=== PATIENT | female | born 1995 | race Caucasian/White ===

== ENCOUNTER 2017-02-17 07:14 | Emergency (ER) | payer OTHER ==
[2017-02-17 07:19] VITALS: TEMP 97.5
[2017-02-17] MEDS ORDERED: FAMOTIDINE 20 MG/NACL 50 ML IV ONE (07:54)
[2017-02-17] MEDS ORDERED: KETAMINE 100 MG/10 ML SYR IVP ONE (07:55)
[2017-02-17 07:59] LABS: % IMMATURE GRANULYOCYTES 0.4 % (0.0-1.1); ABSOLUTE IMMATURE GRANULOCYTES 0.06 10^3/uL (0.00-0.10); ADD DIFF? NO; ADD MORPH? NO; ADD SCAN? NO; ATYPICAL LYMPHOCYTE FLAG 0 (0-99); FRAGMENT RBC FLAG 0 (0-99); HEMATOCRIT 41.3 % (38.0-47.0); HEMOGLOBIN 14.6 g/dL (12.6-16.3); LEFT SHIFT FLG 0 (0-99); LIPEMIA HEMOLYSIS FLAG 90 (0-99); MEAN CELL HEMOGLOBIN 30.2 pg (27.9-34.1); MEAN CELL HEMOGLOBIN CONCENTR. 35.4 g/dL (32.4-36.7); MEAN CELL VOLUME 85.5 fL (81.5-99.8); MEAN PLATELET VOLUME 8.9 fL (8.7-11.7); PLATELET CLUMPS FLAG 20 (0-99); PLATELET COUNT 320 10^3/uL (150-400); RED BLOOD CELL COUNT 4.83 10^6/uL (4.18-5.33); RED CELL DISTRIBUTION WIDTH 11.9 % (11.5-15.2)
--- NOTE | 2017-02-17 07:59 | EDPHY ---
H & P Stated Complaint: LUQ abd pain Time Seen by Provider: 02/17/17 07:40 HPI/ROS: CHIEF COMPLAINT: Abdominal pain HISTORY OF PRESENT ILLNESS: This is a healthy immunocompetent 22-year-old female who presents with 2 hours of abdominal pain. She was awakened at 6:00 a.m. this morning by sharp midepigastric pain. The pain is now localized in the left upper quadrant. It is constant and sharp with intermittent worsening. She has not had trauma. She denies nausea, vomiting, or diarrhea. She has not had dysuria or other urinary symptoms. She denies fever. She has never had pain like this in the past. She has not taken anything for pain relief. She does not notice anything that makes it better or worse. She has not had any abdominal surgeries. She is taking control pills and had her last menstrual period within the last 2 weeks. REVIEW OF SYSTEMS: A ten point review of systems was performed and is negative with the exception of the items mentioned in the HPI. Past medical history: Negative Past surgical history: Negative Family history: Grandmother with breast and bladder cancer, grandfather with diabetes. 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 She does not use tobacco products. She drinks socially on the weekends. General Appearance: Alert. Vital signs reviewed. Heart rate 102 at triage. Eyes: Pupils equal and round, no conjunctival injection, no discharge. Anicteric. ENT, Mouth: Mucous membranes are moist, no oropharyngeal erythema or edema. Neck: No lymphadenopathy, supple. Respiratory: Lungs are clear to auscultation; no wheezes, rales, or rhonchi. Cardiovascular: Regular rate and rhythm; not tachycardic at the time of my exam , no murmur, rub, or gallop. Gastrointestinal: Abdomen is soft and tender in the midepigastrium in the left upper quadrant without guarding, no masses or organomegaly, bowel sounds normal. Skin: Warm and dry, no rashes on exposed skin, normal color. Back: Nontender to palpation over the thoracolumbar spine. No CVAT. Extremities: No lower extremity edema, no calf tenderness or swelling. Neurological: Alert and oriented. Moving all four extremities easily and equally. Psychiatric: Normal affect. - Personal History LMP (Females 10-55): 8-14 Days Ago Current Tetanus/Diphtheria Vaccine: Unsure - Medical/Surgical History Hx Asthma: No Hx Chronic Respiratory Disease: No Hx Diabetes: No Hx Cardiac Disease: No Hx Renal Disease: No Hx Cirrhosis: No Hx Alcoholism: No Hx HIV/AIDS: No Hx Splenectomy or Spleen Trauma: No Other PMH: denies - Social History Smoking Status: Never smoked Constitutional: Initial Vital Signs Temperature (C) 36.4 C 02/17/17 07:17 Heart Rate 102 H 02/17/17 07:17 Respiratory Rate 17 02/17/17 07:17 Blood Pressure 100/73 02/17/17 07:17 O2 Sat (%) 98 02/17/17 07:17 O2 Delivery Mode Room Air Allergies/Adverse Reactions: No Known Allergies Allergy (Unverified 02/17/17 07:15) Home Medications: Medication Instructions Recorded Bcp 02/17/17 Cephalexin [Keflex] 500 mg PO BID #10 cap 02/17/17 Medical Decision Making ED Course/Re-evaluation: She received ketamine 10 mg IV with brief improvement in her pain. However, the pain resurfaced. Ketamine was followed by fentanyl 50 mcg IV. She continues with left upper quadrant tenderness and pain on exam. Lab work shows an elevated white blood cell count. Re-evaluated at 9:10 a.m.. She feels much better after the fentanyl. The pain is markedly diminished. On exam she continues with some mild left upper quadrant tenderness, no guarding. Awaiting urine sample. 10:20 a.m.. Re-evaluated. Her pain is resurfacing. It continues to be in the left upper quadrant. She does not have CVA tenderness. Urinalysis is positive for blood, trace leukocyte esterase, trace bacteria. I wonder about a kidney stone and I am ordering a CT scan to assess for ureterolithiasis. She does not have any symptoms of bladder infection, but this could be pyelonephritis. Will try Toradol for pain relief. Re-evaluated at noon. She is now pain free. CT scan is unrevealing in terms of an etiology of her pain. I discussed this with her. I am choosing to treat her for urinary tract infection although I do not think that this is causing her to have left upper quadrant pain. Her spleen appears normal on CT scan. She has no signs or symptoms of mononucleosis. As she is currently pain-free I think that she can safely return home. We discussed the danger signs that should prompt her to be re-evaluated. Differential Diagnosis: Abdominal pain including but not limited to appendicitis, cholecystitis, gastritis/PUD and urinary tract infection. - Data Points Laboratory Results: Laboratory Results 02/17/17 07:30 02/17/17 07:30 Medications Given: Discontinued Medications Fentanyl (Sublimaze) 50 mcg IVP EDNOW ONE Stop: 02/17/17 08:56 Last Admin: 02/17/17 09:00 Dose: 50 mcg Famotidine/Sodium Chloride (Pepcid 20 Mg (Premix)) 50 mls @ 200 mls/hr IV EDNOW ONE Stop: 02/17/17 08:08 Last Admin: 02/17/17 08:01 Dose: 50 mls Ketamine HCl (Ketamine) 10 mg IVP EDNOW ONE Stop: 02/17/17 07:56 Last Admin: 02/17/17 08:01 Dose: 10 mg Ketorolac Tromethamine (Toradol) 15 mg IVP EDNOW ONE Stop: 02/17/17 10:25 Last Admin: 02/17/17 10:31 Dose: 15 mg Departure - Departure Disposition: Home, Routine, Self-Care Clinical Impression: Abdominal pain Qualifiers: Abdominal location: left upper quadrant Qualified Code(s): R10.12 - Left upper quadrant pain Urinary tract infection Qualifiers: Urinary tract infection type: acute cystitis Hematuria presence: with hematuria Qualified Code(s): N30.01 - Acute cystitis with hematuria Condition: Good Instructions: Cephalexin (By mouth), Urinary Tract Infection in Women (ED), Acute Abdominal Pain (ED) Additional Instructions: I am writing a prescription for antibiotics to use for urinary tract infection. As we discussed, I do not think that a urinary tract infection would cause the left upper abdominal pain that you are experiencing. If this pain worsens or if you develop fever, vomiting, diarrhea, or any new and concerning symptoms you should be re-evaluated. I have not found a cause for your upper abdominal pain. It is possible that this is gastritis or ulcer disease. I am recommending that you start 1 of the [id number] antacid medications such as Pepcid or Zantac. Take this according to the instructions on the box. Referrals: [facility]BELL[facility] Hou,. [Clinic] - As per Instructions Prescriptions: Cephalexin [Keflex] 500 mg PO BID #10 cap
[2017-02-17 08:08] LABS: ALANINE AMINOTRANSFERASE 30 IU/L (9-52); ALBUMIN 4.5 g/dL (3.5-5.0); ALKALINE PHOSPHATASE 60 IU/L (38-126); ANION GAP 11 mEq/L (8-16); ASPARTATE AMINOTRANSFERASE 20 IU/L (14-46); BILIRUBIN,TOTAL 0.6 mg/dL (0.1-1.4); BILIRUBIN-CONJUGATED 0.1 mg/dL (0.0-0.5); BILIRUBIN-UNCONJUGATED 0.5 mg/dL (0.0-1.1); CALCIUM 9.6 mg/dL (8.5-10.4); CARBON DIOXIDE 23 mEq/l (22-31); CHLORIDE 106 mEq/L (97-110); CREATININE 0.8 mg/dL (0.6-1.0); GLOMERULAR FILTRATION RATE > 60; GLUCOSE 102 mg/dL (70-100); POTASSIUM 4.1 mEq/L (3.5-5.2); SODIUM 140 mEq/L (134-144); TOTAL PROTEIN 7.1 g/dL (6.3-8.2)
[2017-02-17] MEDS ORDERED: fentaNYL 100 MCG/2 ML INJ IVP ONE (08:55)
[2017-02-17 10:06] LABS: COLOR YELLOW; LEUKOCYTE ESTERASE,URINE 2+ (NEGATIVE); NITRITE,URINE NEGATIVE (NEGATIVE)
[2017-02-17 10:20] LABS: BACTERIA TRACE /hpf (NONE SEEN); MUCUS TRACE /lpf (NONE-1+)
[2017-02-17] MEDS ORDERED: KETOROLAC 15 MG/1 ML SDV IVP ONE (10:24)
[2017-02-17 12:05] VITALS: BP 96/62; PULSE 69; RESP 16; O2SAT 97
== END 2017-02-17 12:26 | disposition home or self-care (01) ==
DX: N30.01 Acute cystitis with hematuria (principal); B96.89 Other specified bacterial agents as the cause of diseases classified elsewhere
CPT/HCPCS: 96374; J1885; J3010